=== PATIENT | female | born 1965 | race Caucasian/White ===

== ENCOUNTER 2017-11-14 18:29 | Emergency (ER) | payer MEDICARE, OTHER ==
[2017-11-14 18:30] VITALS: BMI 22.6
[2017-11-14 18:34] VITALS: PULSE 86; RESP 16; TEMP 98; O2SAT 99
[2017-11-14 18:51] VITALS: BP 134/82
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
--- NOTE | 2017-11-15 10:57 | CT ---
Date of service: 11/14/2017 PROCEDURE: CT HEAD WITHOUT CONTRAST. HISTORY: headache dizzy COMPARISON: 07/22/2015 TECHNIQUE: Axial computed tomography images were obtained through the head/brain without intravenous contrast. Radiation dose: Total exam DLP = 742 mGy-cm. This CT exam was performed using one or more of the following dose reduction techniques: Automated exposure control, adjustment of the mA and/or kV according to patient size, and/or use of iterative reconstruction technique. FINDINGS: HEMORRHAGE: No intracranial hemorrhage. BRAIN: No mass effect or edema. Minor small vessel changes are suspected in the white matter tracts. No cortical effacement is seen. VENTRICLES: Unremarkable. No hydrocephalus. CALVARIUM: Unremarkable. PARANASAL SINUSES: Mild mucosal thickening is seen in the sinuses, unchanged. MASTOID AIR CELLS: Unremarkable as visualized. No inflammatory changes. OTHER FINDINGS: None. IMPRESSION: No evidence of recent infarct or intracranial hemorrhage. No interval change from prior exam. This agrees with preliminary report.
== END 2017-11-14 21:02 ==
LOC: H.ER 18:29
DX: R51 Headache (principal); F41.9 Anxiety disorder, unspecified; I10 Essential (primary) hypertension; E78.00 Pure hypercholesterolemia, unspecified; I12.9 Hypertensive chronic kidney disease with stage 1 through stage 4 chronic kidney disease, or unspecified chronic kidney disease; Z99.2 Dependence on renal dialysis